=== PATIENT | female | born 1980 ===

== ENCOUNTER → 2023-08-28 13:45 | Outpatient (CLI) | payer OTHER, SELFPAY ==
--- NOTE | 2023-08-28 13:50 | DI.RAD.S_ITS ---
PROCEDURE: XR FACIAL BONES MIN 3V INDICATIONS: Forehead and nasal injury s/p fall TECHNIQUE: 5 total views of the facial bones were acquired. COMPARISON: None. FINDINGS: Sinuses: Visualized sinuses demonstrate no air-fluid levels or mucosal thickening. Bones: No fractures. No suspicious bony lesions. Orbital rims and zygomatic arches appear intact. Soft tissues: No suspicious soft tissue densities. IMPRESSION: No displaced fracture can be seen on this plain film study. If there is strong clinical concern for a facial bone fracture that is not seen on these images, please consider a dedicated maxillofacial CT for further evaluation. Dictated by: Jimmy Davenport M.D. on 08/28/2023 at 13:34 Approved by: Jimmy Davenport M.D. on 08/28/2023 at 13:34
== END ==
PROVIDERS: Referring Provider Registered Nurse; Visit Provider Registered Nurse
DX: S09.93XA Unspecified injury of face, initial encounter (principal); W19.XXXA Unspecified fall, initial encounter
CPT/HCPCS: 70150